=== PATIENT | female | born 1985 | race American Indian/Alaskan Native ===

== ENCOUNTER 2019-12-27 10:27 | Emergency (ER) | payer MEDICAID ==
[2019-12-27] MEDS ORDERED: ASPIRIN 325 MG TAB PO ONE (10:35)
[2019-12-27] MEDS ORDERED: ONDANSETRON 4 MG ODT TAB PO ONE (11:28)
[2019-12-27] MEDS ORDERED: HYDROcodone/ACETAMINOPHEN 10-325MG TAB PO ONE (11:28)
--- NOTE | 2019-12-27 12:13 | XRay Report ---
CERVICAL SPINE 3 VIEWS INDICATION: pain. COMPARISON: None. IMPRESSION: Normal alignment. No significant discogenic DJD or facet arthropathy. No acute osseous or soft tissue abnormality. Signer Name: Efrain Jaeger Jr, MD Signed: 12/27/2019 12:09 PM Workstation Name: [id number]
--- NOTE | 2019-12-27 12:26 | Emergency Department Report ---
ED General Adult HPI - General Chief complaint: Chest Pain Stated complaint: LFT SIDE NECK/ARM/SHOULDER PAIN Time Seen by Provider: 12/27/19 11:03 Source: patient Mode of arrival: Ambulatory Limitations: No Limitations - History of Present Illness Initial comments: The patient presents to the emergency department with a chief complaint of pain in her right neck that radiates into her fingertips. Patient denies any chest pain or shortness of breath. Patient states movement of her right shoulder makes the pain worse. Patient denies any trauma. Patient denies lifting heavy objects or any change in activity. -: Sudden Location: upper extremity Radiation: distal Severity scale (0 -10): 8 Quality: sharp Consistency: constant Improves with: rest Worsens with: movement Associated Symptoms: denies other symptoms Treatments Prior to Arrival: none - Related Data Previous Rx's Medication Instructions Recorded Last Taken Type HYDROcodone/APAP 5-325 [[place] 1 each PO Q6HR PRN #12 tablet 12/27/19 Unknown Rx 5/325] Ibuprofen [Motrin] 800 mg PO Q8HR PRN #30 tablet 12/27/19 Unknown Rx predniSONE [Deltasone] 20 mg PO DAILY #15 tablet 12/27/19 Unknown Rx Allergies Allergy/AdvReac Type Severity Reaction Status Date / Time Sulfa (Sulfonamide Allergy Unknown Verified 12/27/19 10:35 Antibiotics) ED Review of Systems ROS: Stated complaint: LFT SIDE NECK/ARM/SHOULDER PAIN Other details as noted in HPI Comment: All other systems reviewed and negative Constitutional: denies: chills, fever Eyes: denies: eye pain, eye discharge, vision change ENT: denies: ear pain, throat pain Respiratory: denies: cough, shortness of breath, wheezing Cardiovascular: denies: chest pain, palpitations Endocrine: no symptoms reported Gastrointestinal: denies: abdominal pain, nausea, diarrhea Genitourinary: denies: urgency, dysuria, discharge Musculoskeletal: other (shoulder pain). denies: back pain, joint swelling, arthralgia Skin: denies: rash, lesions Neurological: denies: headache, weakness, paresthesias Psychiatric: denies: anxiety, depression Hematological/Lymphatic: denies: easy bleeding, easy bruising ED Past Medical Hx - Past Medical History Previous Medical History?: Yes Additional medical history: MVR - Surgical History Past Surgical History?: Yes Additional Surgical History: Mitral valve replacement - Social History Smoking Status: Never Smoker Substance Use Type: None - Medications Home Medications: Home Medications Medication Instructions Recorded Confirmed Last Taken Type HYDROcodone/APAP 5-325 [[place] 1 each PO Q6HR PRN #12 tablet 12/27/19 Unknown Rx 5/325] Ibuprofen [Motrin] 800 mg PO Q8HR PRN #30 tablet 12/27/19 Unknown Rx predniSONE [Deltasone] 20 mg PO DAILY #15 tablet 12/27/19 Unknown Rx ED Physical Exam - General Limitations: No Limitations General appearance: alert, in no apparent distress - Head Head exam: Present: atraumatic, normocephalic - Eye Eye exam: Present: normal appearance, PERRL, EOMI - ENT ENT exam: Present: mucous membranes moist - Neck Neck exam: Present: normal inspection - Respiratory Respiratory exam: Present: normal lung sounds bilaterally. Absent: respiratory distress, wheezes - Cardiovascular Cardiovascular Exam: Present: regular rate, normal rhythm, other (Patient has 2+ radial and ulnar pulses left side). Absent: systolic murmur, diastolic murmur, rubs, gallop - GI/Abdominal GI/Abdominal exam: Present: soft, normal bowel sounds - Extremities Exam Extremities exam: Present: other (Tender to palpation of the deltoid and trapezius muscle on the left side with obvious spasms) - Back Exam Back exam: Present: normal inspection - Neurological Exam Neurological exam: Present: alert, oriented X3, CN II-XII intact. Absent: motor sensory deficit - Psychiatric Psychiatric exam: Present: normal affect, normal mood - Skin Skin exam: Present: warm, dry, intact, normal color. Absent: rash ED Course Vital Signs 12/27/19 10:33 Temperature 97.9 F Pulse Rate 84 Respiratory 16 Rate Blood Pressure 132/85 O2 Sat by Pulse 100 Oximetry ED Medical Decision Making - EKG Data -: EKG Interpreted by Ia EKG shows normal: sinus rhythm Rate: tachycardia - Radiology Data Radiology results: report reviewed - Medical Decision Making Discussed results with patient sx improved with [facility] for rehab medicines Critical care attestation.: If time is entered above; I have spent that time in minutes in the direct care of this critically ill patient, excluding procedure time. ED Disposition Clinical Impression: Muscle spasm, Musculoskeletal arm pain Disposition: DC- TO HOME OR SELFCARE Is pt being admited?: No Does the pt Need Aspirin: No Condition: Stable Instructions: Muscle Spasm (ED) Additional Instructions: return if worse Referrals: PRIMARY CAREMD [Primary Care Provider] - 3-5 Days KD NESS MD [Staff Physician] - 3-5 Days Time of Disposition: 13:45
[2019-12-27] MEDS ORDERED: KETOROLAC 60 MG/2 ML INJ IM ONE (12:38)
[2019-12-27] MEDS ORDERED: methylPREDNISolone Sod Succinate 125 MG/2 ML INJ IM ONE (12:38)
[2019-12-27 14:24] VITALS: BP 122/74
== END 2019-12-27 14:23 | disposition home or self-care (01) ==
LOC: ED 10:27
DX: M79.602 Pain in left arm (principal); M62.838 Other muscle spasm; Z79.899 Other long term (current) drug therapy; Z88.2 Allergy status to sulfonamides
CPT/HCPCS: 36415; 71046; 72040; 82550; 93005; 96372; 99284; J1885; J2930; Q0162